=== PATIENT | male | born 2000 | race Caucasian/White ===

== ENCOUNTER 2020-04-23 16:49 | Emergency (ER) | payer SELFPAY ==
[~2020-04-23] VITALS: Ht 170.2 cm; Wt 54.5 kg
[2020-04-23 16:57] VITALS: Ht 170.2 cm; Wt 54.5 kg
[2020-04-23] MEDS ORDERED: AUGMENTIN 875-11 TAB PO (18:12)
[2020-04-23] MEDS ORDERED: HYDROCODON-ACE1 EAC7 PO (19:28)
[2020-04-23 19:34] VITALS: BP 119/80
[2020-04-25 13:08] VITALS: Ht 170.2 cm; Wt 54.5 kg
== END 2020-04-23 19:34 | disposition home or self-care (01) ==
LOC: D.ER 16:49
DX: S62.634A Displaced fracture of distal phalanx of right ring finger, initial encounter for closed fracture (principal); S61.314A Laceration without foreign body of right ring finger with damage to nail, initial encounter; W22.8XXA Striking against or struck by other objects, initial encounter; Y93.9 Activity, unspecified; Y92.9 Unspecified place or not applicable

== ENCOUNTER 2020-04-24 15:07 | Inpatient (IN) | payer MEDICAID ==
[~2020-04-24] VITALS: Ht 170.2 cm; Wt 54.5 kg
[~2020-04-24 15:07] MED LIST: AUGMENTIN 875-11 TAB PO; HYDROCODON-ACE1 EAC7 PO
[2020-04-24 16:19] LABS: BASOPHILS 0.4 % (0-2); EOSINOPHILS 2.5 % (0-7); HEMATOCRIT 46.7 % (42.0-54.0); HEMOGLOBIN 15.6 g/dL (13.5-17.5); IMMATURE GRANULOCYTES 0.3 % (0-5); LYMPHOCYTES 28.5 % (15-50); MCH 31.5 pg (26.0-34.0); MCHC 33.4 g/dL (31.0-37.0); MCV 94.2 fL (80.0-100.0); MEAN PLATELET VOLUME 10.2 fL (7.4-10.4); MONOCYTES 9.9 % (2-11); NEUTROPHILS 58.4 % (40-80); PLATELET COUNT 231 10x3/uL (130-400); RBC 4.96 10x6/uL (4.20-6.10); RDW 14.1 % (11.5-14.5); WBC 7.5 10x3/uL (4.8-10.8)
[2020-04-24 16:28] LABS: APTT 28.2 SECONDS (22.8-39.4); INR 0.94 (0.85-1.17); PROTIME 12.5 SECONDS (11.6-15.0)
[2020-04-24 16:34] LABS: ALBUMIN 4.2 g/dL (3.4-5.0); ALKALINE PHOSPHATASE 63 U/L (30-120); ALT (SGPT) 19 U/L (10-68); BILIRUBIN - TOTAL 0.62 mg/dL (0.2-1.3); CALC OSMOLALITY 274 mosm/kg (275-300); CALCIUM 9.7 mg/dL (8.5-10.1); CARBON DIOXIDE 32.3 mmol/L (21.0-32.0); CHLORIDE - SERUM 101 mmol/L (98-107); CREATININE - SERUM 1.1 mg/dL (0.6-1.3); GLUCOSE 104 mg/dL (74-106); POTASSIUM - SERUM 4.3 mmol/L (3.5-5.1); PROTEIN - SERUM 7.2 g/dL (6.4-8.2); SODIUM 138 mmol/L (136-145); UREA NITROGEN 11 mg/dL (7-18); eGFR NON AFRICAN AMERICAN > 90 mL/min (90-120)
[2020-04-24 17:08] VITALS: BP 114/63; BMI 18.8
[2020-04-24 20:00] VITALS: BP 110/61
--- NOTE | 2020-04-24 23:24 | NUR ---
ALERT AND ORENTED ABLE TO VOICE NEEDS AND WANTS TO STAFF. IV TO LFT AC INTACT AND PATEN WITH NS PER ORDERS. ON ROOM AIR. MORPHINE EVERY 4 HOURS PRN FPR PAIN CONTROL. RIGHT HAND FOURTH FINGER DISTAL TUFT FRACTURE. DRESSING INTACT. UP AT SAHR. NO NEEDS AT THIS TIME WATER CALL LIGHT IN REACH FREND AT BEDSIDE.
[2020-04-25] VITALS (7 sets, daily range): BP systolic 95–121; BP diastolic 47–71; Ht 170.2 cm; Wt 54.5 kg
[2020-04-25 07:23] LABS: CALC OSMOLALITY 275 mosm/kg (275-300); CALCIUM 9.1 mg/dL (8.5-10.1); CARBON DIOXIDE 29.1 mmol/L (21.0-32.0); CHLORIDE - SERUM 105 mmol/L (98-107); CREATININE - SERUM 1.1 mg/dL (0.6-1.3); GLUCOSE 97 mg/dL (74-106); POTASSIUM - SERUM 4.2 mmol/L (3.5-5.1); SODIUM 138 mmol/L (136-145); UREA NITROGEN 12 mg/dL (7-18); eGFR NON AFRICAN AMERICAN > 90 mL/min (90-120)
--- NOTE | 2020-04-25 07:26 | NUR ---
ALERT AND ORIENTED. LUNGS CLEAR BILATERALLY. HEART SOUNDS S1 AND S2 HEARD IN ALL CROUCH. BOWEL SOUNDS ACTIVE X 4. IV TO LEFT AC PATENT WITHOUT REDNESS. DENIES NEEDS. BED LOW. GIRLFRIEND IN ROOM. CALL BRIAN AND PERSONAL ITEMS IN REACH. WILL CONTINUE TO MONITOR.
[2020-04-25 10:34] LABS: HEMATOCRIT 41.8 % (42.0-54.0); HEMOGLOBIN 14.2 g/dL (13.5-17.5); MCH 31.7 pg (26.0-34.0); MCV 93.3 fL (80.0-100.0); MEAN PLATELET VOLUME 11.1 fL (7.4-10.4); PLATELET COUNT 217 10x3/uL (130-400); RBC 4.48 10x6/uL (4.20-6.10); RDW 14.3 % (11.5-14.5); WBC 6.2 10x3/uL (4.8-10.8)
[2020-04-25 10:36] LABS: EOSINOPHILS 6 % (0-7); LYMPHOCYTES 36 % (15-50); MONOCYTES 8 % (2-11); NEUTROPHILS 49 % (40-80); PLATELET ESTIMATE NORMAL
--- NOTE | 2020-04-25 10:39 | NUR ---
CONSENTS OBTAINED FOR PROCEDURE AND PREOP MEDICATIONS GIVEN PER ORDER. PATIENT TAKEN FOR PROCEDURE.
[2020-04-25] MEDS ORDERED: BACTRIM DS TAB1 EAC1 PO (11:23)
[2020-04-25] MEDS ORDERED: HYDROCODON-ACE1 EA10 PO (11:23)
--- NOTE | 2020-04-25 12:05 | NUR ---
PATIENT RETURNED FROM PROCEDURE. VITALS STABLE. DRSG TO RIGHT HAND C/D/I.
--- NOTE | 2020-04-25 13:15 | NUR ---
RESTING IN BED. GIRLFRIEND AT BEDSIDE. VITALS REMAIN STABLE. WILL CONTINUE TO MONITOR.
--- NOTE | 2020-04-25 13:50 | NUR ---
PATIENT REQUESTING DISCHARGE. HAS BEEN UP TO VOID POST OP. TOLERATING FOOD. DENIES PAIN. WAITING DC PAPERWORK.
--- NOTE | 2020-04-25 14:44 | NUR ---
SPOKE WITH [employer] IN [employer] TO GET SLING FOR PATIENT FOR DC.
--- NOTE | 2020-04-25 15:00 | NUR ---
DC EDUCATION PROVIDED BOTH WRITTEN AND VERBAL. VERBALIZED UNDERSTANDING. DENIES FURTHER QUESTIONS. RX FOR PAIN MEDICATION AND ABX PROVIDED. SLING PROVIDED AND PLACED ON PATIENT FOR DC. DENIES FURTHER NEEDS. IV REMOVED FROM LFA WITH TIP INTACT. PATIENT DC HOME WITH GIRLFRIEND WITH ALL BELONGINGS.
--- NOTE | 2020-04-27 09:12 | OP ---
PATIENT NAME: BRYCE NUNEZ MEDICAL RECORD: [id number] LOCATION:[id number] ADMISSION DATE:04/24/20 SURGEON: JACINTO PAUL MD DATE OF OPERATION: 04/25/2020 PREOPERATIVE DIAGNOSIS: Open fracture of the right ring finger distal phalanx with nail bed avulsion. POSTOPERATIVE DIAGNOSIS: Open fracture of the right ring finger distal phalanx with nail bed avulsion. PROCEDURES: 1. Closed reduction percutaneous pinning of the right ring finger distal phalanx. 2. Right ring finger nail bed reconstruction. 3. I&D of the open wound. SURGEON: Jacinto Paul MD ANESTHESIA: General. INTRAOPERATIVE COMPLICATIONS: None. SUMMARY OF PATHOLOGIC FINDINGS: The patient had very macerated skin as well as a complete avulsion of the entire germinal matrix portion of the nail bed. INDICATIONS: This young man presented to the ER late in the evening and was told to report to our office after giving the appropriate treatment. Unfortunately, the patient did not report to our office, did not get his antibiotics, and reported back to the hospital nights later for treatment. OPERATIVE SUMMARY IN DETAIL: After obtaining the appropriate preoperative orthopedic surgery consent as well as well as anesthetic consultation, evaluation and clearance, the patient was brought to the operating room and placed on the operating table in supine position. After general laryngeal mask airway was administered, tourniquet was placed about the proximal aspect of the patient's right upper extremity. Right upper extremity was then prepped and draped in routine sterile fashion. Note, the tourniquet was not used during this case. Attention was turned first to the nail bed reconstruction. After copious irrigation and debridement, both the fracture and the nail bed with bulb syringe. The nail bed was then reapproximated back into the eponychial fold. It was held into place with 4-0 Prolene in a [id number]-[id number] style suture to hold it into place. This resulted in anatomic oriental orthodox of the fracture itself, which was then pinned with an 0.045 K-wire through the DIP joint of the right ring finger. Having completed this, sterile dressings were applied. Jergens ball was applied to the K-wire. The patient was awakened after the appropriate splinting and taken to recovery room in stable condition. All final needle and sponge counts were correct. TRANSINT:[id number] Voice Confirmation ID: [id number] DOCUMENT ID: [id number] OPERATIVE REPORT [id number] BRYCE NUNEZ MD, JACINTO ALAMO at 0912 CC: [id number] DICTATION DATE: 04/26/20 1139 SPARK TESTER: 04/26/200 DIS IN 04/25/20 [place] [id number] [place] [id number]
== END 2020-04-25 15:01 | disposition home or self-care (01) | DRG 514 ==
LOC: D.ER 15:07 → D.MS 16:03
PROVIDERS: Family Medicine; ADMIT Orthopaedic Surgery; ATTEND Orthopaedic Surgery
PROC: 0PST34Z Reposition Right Finger Phalanx with Internal Fixation Device, Percutaneous Approach (ICD-10-PCS; principal; 2020-04-25 15:15)
PROC: 0HQQXZZ Repair Finger Nail, External Approach (ICD-10-PCS; 2020-04-25 15:15)
PROC: 0H9QXZZ Drainage of Finger Nail, External Approach (ICD-10-PCS; 2020-04-25 15:15)
DX: S62.634B Displaced fracture of distal phalanx of right ring finger, initial encounter for open fracture (principal); W23.0XXA Caught, crushed, jammed, or pinched between moving objects, initial encounter; S61.314A Laceration without foreign body of right ring finger with damage to nail, initial encounter; Z72.0 Tobacco use

== ENCOUNTER 2020-05-24 22:15 | Emergency (ER) | payer MEDICAID ==
[~2020-05-24] VITALS: Ht 170.2 cm; Wt 54.5 kg
[~2020-05-24 22:15] MED LIST changes: +BACTRIM DS TAB1 EAC1 PO; +HYDROCODON-ACE1 EA10 PO
[2020-05-24 22:23] VITALS: BP 107/62; Ht 170.2 cm; Wt 54.5 kg
[2020-05-24 23:04] LABS: BASOPHILS 0.4 % (0-2); EOSINOPHILS 2.4 % (0-7); HEMATOCRIT 38.4 % (42.0-54.0); HEMOGLOBIN 13.3 g/dL (13.5-17.5); IMMATURE GRANULOCYTES 0.4 % (0-5); LYMPHOCYTES 44.5 % (15-50); MCH 31.6 pg (26.0-34.0); MCHC 34.6 g/dL (31.0-37.0); MCV 91.2 fL (80.0-100.0); MEAN PLATELET VOLUME 10.6 fL (7.4-10.4); MONOCYTES 6.6 % (2-11); NEUTROPHILS 45.7 % (40-80); PLATELET COUNT 232 10x3/uL (130-400); RBC 4.21 10x6/uL (4.20-6.10); RDW 13.3 % (11.5-14.5); WBC 7.9 10x3/uL (4.8-10.8)
[2020-05-24 23:12] LABS: ANION GAP 13.3 mmol/L (8-16); CALCIUM 8.8 mg/dL (8.5-10.1); CARBON DIOXIDE 27.6 mmol/L (21.0-32.0); CREATININE - SERUM 1.6 mg/dL (0.6-1.3); POTASSIUM - SERUM 3.9 mmol/L (3.5-5.1)
[2020-05-24] MEDS ORDERED: BACTRIM DS TAB1 EAC1 PO (23:15)
[2020-05-24 23:18] LABS: ALBUMIN 3.9 g/dL (3.4-5.0); BILIRUBIN - TOTAL 0.16 mg/dL (0.2-1.3); PROTEIN - SERUM 6.9 g/dL (6.4-8.2)
== END 2020-05-24 23:46 | disposition home or self-care (01) ==
LOC: D.ER 22:15
PROVIDERS: Family Medicine
DX: L03.113 Cellulitis of right upper limb (principal); K21.9 Gastro-esophageal reflux disease without esophagitis